=== PATIENT | female | born 1975 | race Two or more races ===

== ENCOUNTER 2016-07-07 15:01 | Emergency (ER) | payer OTHER ==
[~2016-07-07] VITALS: Ht 160 cm; Wt 90.7 kg
[~2016-07-07 15:01] MED LIST: IBUP-1007 PO; PRED20TA PO
--- NOTE | 2016-07-07 15:40 | EKG ---
[facility] [address] [place] [address] Test Date: 2016-07-07 Test Time: 15:15:49 Pat Name: SHINE SALDANA Department: Room: Gender: F Development Director: : 1975 Requested By: JAIRO CAPONE Order Number: [id number] Reading MD: Shazia Pratt Measurements Intervals Rogers Rate: 95 P: 14 SC: 168 QRS: 25 QRSD: 80 T: 26 QT: 348 QTc: 441 Interpretive Statements SINUS RHYTHM NO SPECIFIC ECG ABNORMALITIES RI6.01 Compared to ECG 05/01/2016 01:43:12 No significant changes Electronically Signed On 07-11-2016 23:11:32 SENIOR PACKAGING ENGINEER by Shazia Pratt
[2016-07-07 15:52] LABS: BASO # 0.1 x10^3/uL (0.0-0.2); BASO % 1 % (0-3); EOS % 1 % (0-3); HEMATOCRIT 40.2 % (36.0-47.0); HEMOGLOBIN 13.6 g/dL (12.0-15.5); LYMPH # 2.5 x10^3/uL (1.0-4.8); LYMPH % 25 % (24-48); MEAN CORPUSCULAR HEMOGLOBIN 33 pg (25-35); MEAN CORPUSCULAR HGB CONC 34 g/dL (31-37); MEAN CORPUSCULAR VOLUME 96 fL (79-100); MONO % 6 % (0-9); NEUT % 67 % (31-73); PLATELET COUNT 272 x10^3/uL (140-400); RED BLOOD COUNT 4.18 x10^6/uL (3.50-5.40); RED CELL DISTRIBUTION WIDTH 12.9 % (11.5-14.5)
[2016-07-07 16:02] LABS: CALCIUM 8.9 mg/dL (8.5-10.1); CREATININE 0.7 mg/dL (0.6-1.0); GFR 92.2; POTASSIUM 3.3 mmol/L (3.5-5.1)
[2016-07-07 16:10] LABS: ALBUMIN 3.8 g/dL (3.4-5.0); ALBUMIN/GLOBULIN RATIO 1.1 (1.0-1.7); TOTAL BILIRUBIN 0.7 mg/dL (0.2-1.0); TOTAL PROTEIN 7.3 g/dL (6.4-8.2)
[2016-07-07 16:29] LABS: OBC FLU VALID
[2016-07-07] MEDS ORDERED: IPRATRPIUM/ALBUTEROL 0.5/2.5MG 3 ML NEBU. NEB ONE (16:30)
--- NOTE | 2016-07-07 16:56 | ED.ADGEN ---
Past Medical History Past Medical History: Asthma, Fibromyalgia, Hyperthyroid, Other Additional Past Medical Histor: lupus, mass on trachea,PLEURISY Past Surgical History: Hysterectomy Alcohol Use: None Drug Use: None Adult General Chief Complaint Chief Complaint: CHEST PAIN HPI HPI Patient is a 40 year old woman, who states that she has been evaluated for lupus, but her lupus test was "negative", history of fibromyalgia, pleurisy, asthma, who presents emergency department complaining of pleuritic type pain under the right breast isn't present for the past several days, she states that she had "a really bad asthma attack" about a month ago, and although she is not coughing or wheezing at this time, has had some pain since that time. States the pain is worse the past 2 days. Denies any weakness numbness or tingling, any nausea or vomiting, states that the pain occurs when she takes a deep breath. No other chest pain, no shortness breath, no recent travel or surgery, no history of DVT or PE, no swelling extremities. She does not take any exogenous estrogens or other medications on a regular basis. Review of Systems Review of Systems Constitutional: Denies fever or chills. [] Eyes: Denies change in visual acuity. [] HENT: Denies nasal congestion or sore throat. [] Respiratory: Denies cough or shortness of breath. [] Cardiovascular: Right-sided pleuritic chest pain. No edema. GI: Denies abdominal pain, nausea, vomiting, bloody stools or diarrhea. [] : Denies dysuria. [] Musculoskeletal: Denies back pain or joint pain. [] Integument: Denies rash. [] Neurologic: Denies headache, focal weakness or sensory changes. [] Endocrine: Denies polyuria or polydipsia. [] Lymphatic: Denies swollen glands. [] Psychiatric: Denies depression or anxiety. [] Current Medications Current Medications Current Medications Medications (Trade) Dose Ordered Sig/Jaret Start Time Stop Time Status Last Admin Dose Admin Albuterol/ Ipratropium (Duoneb) 3 ml 1X ONCE 07/07/16 16:30 07/07/16 16:31 DC 07/07/16 16:57 3 ML Cyclobenzaprine HCl (Flexeril) 10 mg 1X ONCE 07/07/16 17:15 07/07/16 17:16 DC 07/07/16 17:21 10 MG Naproxen (Naprosyn) 250 mg 1X ONCE 07/07/16 17:15 07/07/16 17:16 DC 07/07/16 17:22 250 MG Allergies Allergies Allergies Coded Allergies Type Severity Reaction Last Updated Verified No Known Drug Allergies 09/20/14 No Physical Exam Physical Exam Constitutional: Well developed, well nourished, no acute distress, non-toxic appearance. [] HENT: Normocephalic, atraumatic, bilateral external ears normal, oropharynx moist, no oral exudates, nose normal. [] Eyes: PERRLA, EOMI, conjunctiva normal, no discharge. [] Neck: Normal range of motion, no tenderness, supple, no stridor. [] Cardiovascular:Heart rate regular rhythm, no murmur , S1, S2, no rubs or gallops. [] Lungs & Thorax: Bilateral breath sounds clear to auscultation, no wheezing, rhonchi, rales. Patient reproducible chest wall tenderness underneath the right breast and in the right anterior chest wall, no crepitus, no lesions or abnormalities identified superficially. [] Abdomen: Bowel sounds normal, soft, no tenderness, no rebound, rigidity, no guarding, no masses, no pulsatile masses. [] Skin: Warm, dry, no erythema, no rash. [] Back: No tenderness, no CVA tenderness. [] Extremities: No tenderness, no cyanosis, no clubbing, ROM intact, no edema. Negative Homans sign. [] Neurologic: Alert and oriented X 3, normal motor function, normal sensory function, no focal deficits noted. [] Psychologic: Affect normal, judgement normal, mood normal. [] Current Patient Data Vital Signs Vital Signs Date Time Temp Pulse Resp B/P Pulse Ox O2 Delivery O2 Flow Rate FiO2 07/07/16 16:59 97 Room Air 07/07/16 15:19 98.9 93 18 145/82 98.9 Lab Values Laboratory Tests Test 07/07/16 15:38 07/07/16 15:41 Influenza Type A Antigen Negative (NEGATIVE) Influenza Type B Antigen Negative (NEGATIVE) White Blood Count 10.0x10^3/uL (4.0-11.0) Red Blood Count 4.18x10^6/uL (3.50-5.40) Hemoglobin 13.6g/dL (12.0-15.5) Hematocrit 40.2% (36.0-47.0) Mean Corpuscular Volume 96fL (79-100) Mean Corpuscular Hemoglobin 33pg (25-35) Mean Corpuscular Hemoglobin Concent 34g/dL (31-37) Red Cell Distribution Width 12.9% (11.5-14.5) Platelet Count 272x10^3/uL (140-400) Neutrophils (%) (Auto) 67% (31-73) Lymphocytes (%) (Auto) 25% (24-48) Monocytes (%) (Auto) 6% (0-9) Eosinophils (%) (Auto) 1% (0-3) Basophils (%) (Auto) 1% (0-3) Neutrophils # (Auto) 6.7x10^3uL (1.8-7.7) Lymphocytes # (Auto) 2.5x10^3/uL (1.0-4.8) Monocytes # (Auto) 0.6x10^3/uL (0.0-1.1) Eosinophils # (Auto) 0.1x10^3/uL (0.0-0.7) Basophils # (Auto) 0.1x10^3/uL (0.0-0.2) D-Dimer (Neris) < 0.27ug/mlFEU (0.00-0.50) Sodium Level 140mmol/L (136-145) Potassium Level 3.3mmol/L (3.5-5.1) L Chloride Level 103mmol/L (98-107) Carbon Dioxide Level 30mmol/L (21-32) Anion Gap 7 (6-14) Blood Urea Nitrogen 16mg/dL (7-20) Creatinine 0.7mg/dL (0.6-1.0) Estimated GFR (Cockcroft-Gault) 92.2 BUN/Creatinine Ratio 23 (6-20) H Glucose Level 110mg/dL (70-99) H Calcium Level 8.9mg/dL (8.5-10.1) Total Bilirubin 0.7mg/dL (0.2-1.0) Aspartate Amino Transferase (AST) 30U/L (15-37) Alanine Aminotransferase (ALT) 61U/L (14-59) H Alkaline Phosphatase 85U/L (46-116) Troponin I Quantitative < 0.017ng/mL (0.000-0.055) UA-Ozk-H-Type Natriuretic Peptide 36pg/mL (0-124) Total Protein 7.3g/dL (6.4-8.2) Albumin 3.8g/dL (3.4-5.0) Albumin/Globulin Ratio 1.1 (1.0-1.7) Laboratory Tests 07/07/16 15:41 Laboratory Tests 07/07/16 15:41 EKG EKG EC: Sinus rhythm, heart rate 95 bpm, upright axis, QTC of 441, [place] 168, QRS of 80, no ST elevations or depressions, no evidence of acute ST abnormalities. As interpreted by me. [] Radiology/Procedures Radiology/Procedures Chest x-ray: One view: Normal cardiopulmonary silhouette, no infiltrates, no effusions, no pneumothorax, no soft tissue or bone abdomen abnormalities identified. As interpreted by me. [] Course & Med Decision Making Course & Med Decision Making Pertinent Labs and Imaging studies reviewed. (See chart for details) Patient's evaluation reveals a well-appearing female, with oxygen saturation of 97-100%, heart rate is 86-95, normotensive, PERC negative, d-dimer is negative in the ED, chest x-ray is unremarkable. Patient received a breathing treatment in the ED without change in her symptoms, I did discuss with her symptoms are most consistent with costochondritis, she is relieved that no other abnormalities were identified, will be a little follow-up with her primary care provider, was given a prescription for naproxen and cyclobenzaprine, first dose of both his medications given in the ED, along with clear and detailed discharge and return instructions. Patient voiced understanding and agreement, discharged home in stable condition. Dragon Disclaimer Dragon Disclaimer This electronic medical record was generated, in whole or in part, using a voice recognition dictation system. Departure Impression: Primary Impression: Chest wall pain Disposition: HOME, SELF-CARE Condition: IMPROVED Scripts Naproxen 250 Mg [id number] Mg PO BID PRN PAIN #10 Prov:JAIRO CAPONE DO 07/07/16 Cyclobenzaprine Hcl 10 Mg [id number] Mg PO TID PRN PAIN #12 TAB Prov:JAIRO CAPONE DO 07/07/16 JAIRO CAPONE DO Jul 07, 2016 16:56
[2016-07-07] MEDS ORDERED: CYCL10TA2 PO (17:14)
[2016-07-07] MEDS ORDERED: CYCLOBENZAPRINE 10 MG TABLET. PO ONE (17:15)
[2016-07-07] MEDS ORDERED: NAPROXEN 250 MG TABLET PO ONE (17:15)
[2016-07-07] MEDS ORDERED: NAPR250T2 PO (17:16)
[2016-07-07 17:19] VITALS: BP 127/67
--- NOTE | 2016-07-08 09:33 | RAD ---
AP chest. History: Short of air, chest pain AP view is taken in the chest. The patient's taken a poor inspiration. There is linear atelectasis in both lung bases. There is a large calcified mediastinal node unchanged from old studies. Impression: 1. Poor inspiration. 2. Bibasilar linear atelectasis.
== END 2016-07-07 17:28 | disposition home or self-care (01) ==
LOC: ER 15:01
DX: R07.89 Other chest pain (principal); J45.909 Unspecified asthma, uncomplicated; E05.90 Thyrotoxicosis, unspecified without thyrotoxic crisis or storm
CPT/HCPCS: 36415; 71010; 80053; 83880; 84484; 85027; 85379; 87804; 93005; 94250; 94640; 99285; J7620

== ENCOUNTER → 2016-10-15 | Outpatient (CLI) | payer OTHER ==
[~2016-10-15] MED LIST changes: +CYCL10TA2 PO; +NAPR250T2 PO
--- NOTE | 2016-10-15 15:12 | RAD ---
DATE: 10/15/2016 EXAM: DIGITAL SCREEN BILAT W/CAD HISTORY: Screening. COMPARISON: None. This is a baseline exam This study was interpreted with the benefit of Computerized Aided Detection (CAD). FINDINGS: The breast parenchyma shows scattered fibroglandular densities. Breast parenchyma level B. There is increased density in the subareolar position of both breasts right greater than left. This mild asymmetry is probably a normal variant targeted ultrasound evaluation to the periareolar position of the right breast is advised. IMPRESSION: Increased density periareolar right breast. Targeted ultrasound advised. BI-RADS CATEGORY: 0 INCOMPLETE: NEED ADDITIONAL IMAGING EVAULATION AND/OR PRIOR MAMMOGRAMS FOR COMPARISON RECOMMENDED FOLLOW-UP: ADD ADDITIONAL IMAGING PQRS compliance statement: Patient information was entered into a reminder system with a target due date soon for the next mammogram. Mammography is a sensitive method for finding small breast cancers, but it does not detect them all and is not a substitute for careful clinical examination. A negative mammogram does not negate a clinically suspicious finding and should not result in delay in biopsying a clinically suspicious abnormality. "Our facility is accredited by the [employer] Mammography Program."
== END | disposition home or self-care (01) ==
LOC: MAMMO 12:04
PROVIDERS: ATTEND Nurse Practitioner Family
DX: Z12.31 Encounter for screening mammogram for malignant neoplasm of breast (principal)
CPT/HCPCS: G0202; 77067

== ENCOUNTER → 2016-10-18 | Outpatient (CLI) | payer OTHER ==
--- NOTE | 2016-10-18 11:01 | RAD ---
Right breast ultrasound, 10/18/2016: History: Suspicious screening mammogram The screening study demonstrated mild fibroglandular asymmetry in the retroareolar regions, with greater density on the right compared to the left. A targeted ultrasound exam of the right retroareolar region demonstrated normal heterogeneous fibroglandular shadows. No cystic or solid breast mass is seen. The mammographic findings probably represent a normal variant in the fibroglandular pattern in this patient. IMPRESSION: 1. The targeted ultrasound exam of the right breast reveals no abnormality. 2. Follow-up right mammography in 6 months and then at yearly intervals is suggested to confirm stability. BI-RADS 3-probably benign findings
== END | disposition home or self-care (01) ==
LOC: US 11:14
PROVIDERS: ATTEND Nurse Practitioner Family
DX: R92.8 Other abnormal and inconclusive findings on diagnostic imaging of breast (principal)
CPT/HCPCS: 76641

== ENCOUNTER → 2017-02-22 | Outpatient (CLI) | payer OTHER ==
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
== END | disposition home or self-care (01) ==
LOC: MRI 10:31
PROVIDERS: ATTEND Podiatrist
DX: M65.172 Other infective (teno)synovitis, left ankle and foot (principal); M72.2 Plantar fascial fibromatosis
CPT/HCPCS: 73718

== ENCOUNTER 2017-11-18 21:57 | Emergency (ER) | payer OTHER ==
[2017-11-18 22:53] LABS: BILIRUBIN,URINE NEGATIVE (NEG); CLARITY,URINE CLEAR; COLOR,URINE YELLOW; GLUCOSE,URINE NEGATIVE (NEG); NITRITE,URINE NEGATIVE (NEG); PROTEIN,URINE NEGATIVE (NEG-TRACE)
[2017-11-18 22:55] LABS: BASO % 1 % (0-3); EOS # 0.1 x10^3/uL (0.0-0.7); EOS % 2 % (0-3); HEMATOCRIT 42.4 % (36.0-47.0); LYMPH # 3.3 x10^3/uL (1.0-4.8); LYMPH % 48 % (24-48); MEAN CORPUSCULAR HEMOGLOBIN 34 pg (25-35); MEAN CORPUSCULAR HGB CONC 35 g/dL (31-37); MEAN CORPUSCULAR VOLUME 95 fL (79-100); MONO # 0.4 x10^3/uL (0.0-1.1); MONO % 6 % (0-9); NEUT % 44 % (31-73); PLATELET COUNT 281 x10^3/uL (140-400); RED BLOOD COUNT 4.47 x10^6/uL (3.50-5.40); RED CELL DISTRIBUTION WIDTH 13.4 % (11.5-14.5); WHITE BLOOD COUNT 6.9 x10^3/uL (4.0-11.0)
[2017-11-18 22:56] LABS: ADD MAN DIFF? YES
[2017-11-18] MEDS: IV NORMAL SALINE 1000ML BAG 1,000 ML IV ×2 (23:00)
[2017-11-18 23:01] LABS: BACTERIA,URINE MODERATE /HPF (0-FEW); RBC,URINE 0 /HPF (0-2); SQUAMOUS EPITHELIAL CELL,UR MOD /LPF
[2017-11-18 23:11] LABS: ANION GAP 9 (6-14); BLOOD UREA NITROGEN 16 mg/dL (7-20); BUN/CREATININE RATIO 23 (6-20); CALCIUM 8.6 mg/dL (8.5-10.1); CARBON DIOXIDE 29 mmol/L (21-32); CHLORIDE 105 mmol/L (98-107); CREATININE 0.7 mg/dL (0.6-1.0); GFR 91.8; GLUCOSE 126 mg/dL (70-99); POTASSIUM 3.1 mmol/L (3.5-5.1); SODIUM 143 mmol/L (136-145)
[2017-11-18 23:17] LABS: ALBUMIN 3.6 g/dL (3.4-5.0); ALBUMIN/GLOBULIN RATIO 0.9 (1.0-1.7); ALK PHOS 113 U/L (46-116); ALT (SGPT) 157 U/L (14-59); AST (SGOT) 84 U/L (15-37); LIPASE 136 U/L (73-393); TOTAL BILIRUBIN 0.3 mg/dL (0.2-1.0); TOTAL PROTEIN 7.5 g/dL (6.4-8.2)
[2017-11-18] MEDS: PROCHLORPERAZINE 10 MG/2 ML VIAL. IV ×2 (23:18)
[2017-11-18] MEDS: ONDANSETRON PF 4 MG/2 ML VIAL. IV ×2 (23:18)
[2017-11-18 23:19] LABS: TROPONINI < 0.017 ng/mL (0.000-0.055)
[2017-11-18 23:33] LABS: % ATYL 1 % (0-0); % BANDS 2 % (0-9); % EOS 3 % (0-5); % LYMPHS 44 % (24-48); % MONOS 6 % (0-10); % SEGS 44 % (35-66); PLT ESTIMATE ADEQUATE (ADEQUATE)
[2017-11-18] MEDS ORDERED: diphenhydrAMINE 50 MG/ML VIAL IVP ×2 (23:55)
== END 2017-11-18 23:51 | disposition home or self-care (01) ==
LOC: ER 21:57
DX: R10.10 Upper abdominal pain, unspecified (principal); R11.0 Nausea; R50.9 Fever, unspecified; J45.909 Unspecified asthma, uncomplicated; Z90.710 Acquired absence of both cervix and uterus; M79.7 Fibromyalgia; E05.90 Thyrotoxicosis, unspecified without thyrotoxic crisis or storm
CPT/HCPCS: 36415; 76705; 80053; 81001; 83690; 84484; 84702; 85007; 85025; 87086; 93005; 96374; 96375; 99285-25; J0780; J2405; J7030

== ENCOUNTER → 2019-08-17 | Outpatient (CLI) | payer OTHER ==
[2017-11-18 22:20] VITALS: BP 163/104
[~2019-08-17] MED LIST changes: +CEPH500T PO; -NAPR250T2 PO; +NAPR250T6 PO
--- NOTE | 2019-08-18 08:03 | KCIC ---
CHEST PA LATERAL History: Asthma exacerbation, shortness of breath, cough Comparison: 09/29/2014 two-view chest x-ray exam. Findings: Frontal and lateral views of the chest were obtained. The cardiomediastinal silhouette is normal. Pulmonary vasculature is normal. There is a large calcified lymph node or masslike density at the right lower paratracheal, azygous level. This measures 4.5 cm longitudinal by 2.7 cm transverse by 3.5 cm anteroposterior. It is stable upon correlation with 09/29/2014 two-view chest x-ray exam and older exams. Subtle opacity at the right apex is also similar compared to prior exams. Correlation with previous exams and is small in size. Left lateral basilar discoid atelectasis is present . No pleural effusion or pneumothorax is seen. There is no acute bone abnormality. IMPRESSION: No suspicious process. Electronically signed by: José Simmons MD (08/18/2019 8:00 AM) [facility]
== END | disposition home or self-care (01) ==
LOC: KCIC 12:16
PROVIDERS: ATTEND Nurse Practitioner Family
DX: J98.11 Atelectasis (principal); J45.901 Unspecified asthma with (acute) exacerbation
CPT/HCPCS: 71046

== ENCOUNTER 2021-10-05 20:28 | Emergency (ER) | payer OTHER ==
[~2021-10-05] VITALS: Ht 160 cm; Wt 100.0 kg
[2021-10-05 20:28] VITALS: BP 190/96
[~2021-10-05 20:28] MED LIST changes: +CYCL10TA19 PO; -CYCL10TA2 PO; +NAPR-699 PO; -NAPR250T6 PO
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
[2021-10-05] MEDS ORDERED: DIPHTH,PERTUSS(ACELL),TET TOX 0.5 ML DISP.SYRIN. VAX IM ONE (22:00)
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
[2021-10-05] MEDS ORDERED: HYDR-2761 PO (22:33)
[2021-10-05] MEDS ORDERED: NAPR-514 PO (22:33)
== END 2021-10-05 22:50 | disposition home or self-care (01) ==
LOC: ER 20:28
DX: S62.502A Fracture of unspecified phalanx of left thumb, initial encounter for closed fracture (principal); M25.511 Pain in right shoulder; M25.512 Pain in left shoulder; M54.6 Pain in thoracic spine; M79.602 Pain in left arm; J45.909 Unspecified asthma, uncomplicated; Z90.710 Acquired absence of both cervix and uterus; Y08.89XA Assault by other specified means, initial encounter; Y93.89 Activity, other specified; Y92.89 Other specified places as the place of occurrence of the external cause; Y99.8 Other external cause status
CPT/HCPCS: 72128; 73140; 90471; 90715; 73030-50; 99283-25; 99284-25